=== PATIENT | male | born 2000 | race African-American/Black ===

== ENCOUNTER 2020-11-18 15:32 | Emergency (ER) | payer MEDICAID ==
[2020-11-18] MEDS ORDERED: Sodium Chloride 0.9% 1,000 ML IV SCH (16:45)
--- NOTE | 2020-11-18 17:53 | EDM.PDOC ---
ED HPI GENERAL MEDICAL PROBLEM - General Chief Complaint: Syncope Stated Complaint: SYNCOPAL EPISODE Time Seen by Provider: 11/18/20 15:45 Source of Information: Reports: Patient History Limitations: Reports: No Limitations - History of Present Illness INITIAL COMMENTS - FREE TEXT/NARRATIVE: Patient presented to the ED because of syncopal episode. He said he was feeling weak and dizzy then passed out. He denies any palpitations, nausea,vomiting. He has not been eating or drinking well lately. ED ROS GENERAL - Review of Systems Review Of Systems: See Below Constitutional: Reports: No Symptoms HEENT: Reports: No Symptoms Respiratory: Reports: No Symptoms Cardiovascular: Reports: No Symptoms Endocrine: Reports: No Symptoms GI/Abdominal: Reports: No Symptoms : Reports: No Symptoms Musculoskeletal: Reports: No Symptoms Skin: Reports: No Symptoms Neurological: Reports: No Symptoms Psychiatric: Reports: No Symptoms Hematologic/Lymphatic: Reports: No Symptoms - Physical Exam Exam: See Below Exam Limited By: No Limitations General Appearance: Alert, No Apparent Distress Ears: Normal External Exam, Normal Canal Nose: Normal Inspection, Normal Mucosa Throat/Mouth: Normal Inspection, Normal Lips, Normal Teeth Head Exam: Atraumatic, Normocephalic Neck: Normal Inspection, Non-Tender Respiratory/Chest: No Respiratory Distress, Lungs Clear, Normal Breath Sounds Cardiovascular: Normal Peripheral Pulses, Regular Rate, Rhythm, No Edema, No Gallop GI/Abdominal: Normal Bowel Sounds, Soft, Non-Tender, No Organomegaly Back Exam: Normal Inspection, Full Range of Motion Extremities: Normal Inspection, Normal Range of Motion, Non-Tender Psychiatric: Normal Affect, Normal Mood Skin Exam: Warm, Intact, Normal Color #1 Interpretation EKG Date: 11/18/20 Time: 15:39 Rhythm: NSR Rate (Beats/Min): 56 [place]: Normal P-Wave: Present QRS: Normal ST-T: Normal QT: Normal Comparison: NA - No Prior EKG EKG Interpretation Comments: NSR Premature Repolarization causing ST Elevation Course - Vital Signs Text/Narrative:: Lab/EKG result was reviewed and discussed with patient NS 1 L bolus - Orders/Labs/Meds Orders: Active Orders 24 hr Category Date Time Status EKG Documentation Completion [RC] ASDIRECTED Care 11/18/20 15:46 Active Sodium Chloride 0.9% [Normal Saline] 1,000 ml Med 11/18/20 16:45 Active IV ASDIRECTED EKG 12 Lead [EK] Routine Ther 11/18/20 15:45 Ordered Medication Orders Sodium Chloride (Normal Saline) 1,000 mls @ 999 mls/hr IV ASDIRECTED BERNA Last Admin: 11/18/20 16:50 Dose: 999 mls/hr Documented by: SEDRICK Labs: Laboratory Tests 11/18/20 11/18/20 11/18/20 Range/Units 15:40 15:40 15:40 WBC 5.2 (3.2-10.1) x10-3/uL RBC 4.88 (3.90-5.90) x10(6)uL Hgb 14.9 (12.9-17.7) g/dL Hct 44.2 (38.3-50.1) % MCV 90.5 (80.8-98.7) fL MCH 30.6 (27.0-33.3) pg MCHC 33.8 (28.7-35.3) g/dL RDW 12.9 (12.4-15.0) % Plt Count 317 (117-477) x10(3)uL MPV 6.6 L (6.7-11.0) fL Neut % (Auto) 62.3 (40.3-71.8) % Lymph % (Auto) 27.8 (15.8-45.3) % [place] % (Auto) 9.0 (5.5-15.2) % Eos % (Auto) 0.5 (0.1-6.8) % Baso % (Auto) 0.4 (0.3-3.8) % Neut # (Auto) 3.2 (1.7-6.9) x10-3/uL Lymph # (Auto) 1.4 (0.5-4.5) x10-3/uL [place] # (Auto) 0.5 (0.0-1.2) x10-3/uL Eos # (Auto) 0.0 (0.0-0.6) x10-3/uL Baso # (Auto) 0.0 (0.0-0.3) x10-3/uL Sodium 139 (135-145) mmol/L Potassium 4.1 (3.5-5.3) mmol/L Chloride 103 (100-110) mmol/L Carbon Dioxide 29 (21-32) mmol/L BUN 27 H (7-18) mg/dL Creatinine 1.5 H (0.70-1.30) mg/dL Est Cr Clr Drug Dosing TNP Estimated GFR (MDRD) 60 (>60) BUN/Creatinine Ratio 18.0 (9-20) Glucose 120 H (80-116) mg/dL Calcium 8.6 (8.6-10.2) mg/dL Troponin I 4.6 (4.0-60.3) pg/mL C-Reactive Protein < 0.2 L (0.5-0.9) mg/dL Meds: Medications Generic Name Dose Route Start Last Admin Trade Name Freq PRN Reason Stop Dose Admin Sodium Chloride 1,000 mls @ 999 mls/hr 11/18/20 16:45 11/18/20 16:50 Normal Saline IV 999 mls/hr ASDIRECTED BERNA Administration Departure - Departure Time of Disposition: 18:20 Disposition: Home, Self-Care 01 Condition: Good Clinical Impression: Syncope, Dehydration - Discharge Information Instructions: Dehydration, Adult, [id number], Syncope, [id number] Forms: ED Department Discharge Additional Instructions: Please read discharge instructions on dehydration and syncope Drink at least 2-3 liters of water a day Follow up as needed - My Orders Last 24 Hours: My Active Orders 11/18/20 15:45 EKG 12 Lead [EK] Routine 11/18/20 15:46 EKG Documentation Completion [RC] ASDIRECTED 11/18/20 16:45 Sodium Chloride 0.9% [Normal Saline] 1,000 ml IV ASDIRECTED - Assessment/Plan Last 24 Hours: My Active Orders 11/18/20 15:45 EKG 12 Lead [EK] Routine 11/18/20 15:46 EKG Documentation Completion [RC] ASDIRECTED 11/18/20 16:45 Sodium Chloride 0.9% [Normal Saline] 1,000 ml IV ASDIRECTED
== END 2020-11-18 19:00 | disposition home or self-care (01) ==
LOC: FB.ED 15:32
DX: E86.0 Dehydration (principal)
CPT/HCPCS: 36415; 80048; 84484; 85025; 86140; 93005; 93010; 99283; 99284-25; J7030